=== PATIENT | female | born 1955 | race Caucasian/White ===

== ENCOUNTER 2017-02-19 14:12 | Observation (INO) | payer OTHER ==
[~2017-02-19] VITALS: Ht 167.6 cm; Wt 114.4 kg
[~2017-02-19 14:12] MED LIST: COREG12.5 MG PO
[2017-02-19 15:55] LABS: HEMOGLOBIN 14.9 gm/dl (12.3-15.3); RED BLOOD COUNT 4.66 M/UL (4.00-5.10); WHITE BLOOD COUNT 2.6 K/UL (4.5-11.0)
[2017-02-19 16:29] LABS: BUN/CREATININE RATIO 29 (0-10)
[2017-02-20] MEDS ORDERED: SANTYL OINT 3030 GM TOP (04:42)
[2017-02-20] MEDS ORDERED: ASPIR 8181 MG PO (04:43)
[2017-02-20] MEDS ORDERED: PLAVIX 75 MG TA75 MG PO (04:43)
[2017-02-20] MEDS ORDERED: JANUVIA100 MG PO (04:43)
[2017-02-20] MEDS ORDERED: NITROSTAT 0.40.4 MG SL (04:43)
[2017-02-20] MEDS ORDERED: METFORMIN HCL500 MG PO (04:44)
[2017-02-20] MEDS ORDERED: LOSARTAN POTASS25 MG PO (04:44)
[2017-02-20] MEDS ORDERED: NOVOLOG FL100 UNIT/1 SQ (04:45)
[2017-02-20] MEDS ORDERED: SIMVASTATIN40 MG PO (04:46)
[2017-02-20] MEDS ORDERED: VENTOLIN/PROVE0.5 ML INH (04:46)
[2017-02-20] MEDS ORDERED: LANTUS100 UNIT/1 SC (04:47)
[2017-02-20] MEDS ORDERED: TRAMADOL HCL50 MG PO (04:47)
[2017-02-20] MEDS ORDERED: PRIMIDONE50 MG PO (04:47)
[2017-02-20] MEDS ORDERED: LASIX 40 MG TAB40 MG PO (04:48)
[2017-02-20] MEDS ORDERED: NEURONTIN 300300 MG PO (04:50)
[2017-02-20 05:44] LABS: HEMOGLOBIN 13.7 gm/dl (12.3-15.3); RED BLOOD COUNT 4.34 M/UL (4.00-5.10); WHITE BLOOD COUNT 2.9 K/UL (4.5-11.0)
[2017-02-20] MEDS ORDERED: ZOCOR20 MG PO (13:27)
[2017-02-20] MEDS ORDERED: NORVASC 5 MG TAB5 MG PO (13:54)
[2017-02-20] MEDS ORDERED: ZITHROMAX TRI-500 MG PO (15:19)
== END 2017-02-20 19:00 | disposition home or self-care (01) ==
LOC: ER1 14:12 → ZEROF 21:10 → M/S 21:10
PROVIDERS: Physician Assistant; ADMIT Internal Medicine
DX: M25.511 Pain in right shoulder (principal); D72.819 Decreased white blood cell count, unspecified; D69.6 Thrombocytopenia, unspecified; I25.10 Atherosclerotic heart disease of native coronary artery without angina pectoris; I49.5 Sick sinus syndrome; E11.65 Type 2 diabetes mellitus with hyperglycemia; I10 Essential (primary) hypertension; E78.5 Hyperlipidemia, unspecified; E66.01 Morbid (severe) obesity due to excess calories; Z95.0 Presence of cardiac pacemaker; Z79.82 Long term (current) use of aspirin; Z79.02 Long term (current) use of antithrombotics/antiplatelets; Z79.891 Long term (current) use of opiate analgesic; Z79.4 Long term (current) use of insulin; Z79.899 Other long term (current) drug therapy; Z90.89 Acquired absence of other organs; Z90.49 Acquired absence of other specified parts of digestive tract; Z87.891 Personal history of nicotine dependence; Z91.14 Patient's other noncompliance with medication regimen
CPT/HCPCS: 36415; 71010; 73030; 80053; 80061; 82550; 82553; 82607; 82746; 82962; 83036; 83874; 83880; 84484; 85025; 85027; 93005; 99284; G0378

== ENCOUNTER → 2017-03-16 | Outpatient (CLI) | payer OTHER ==
[~2017-03-16] MED LIST changes: +ASPIR 8181 MG PO; +JANUVIA100 MG PO; +LANTUS100 UNIT/1 SC; +LASIX 40 MG TAB40 MG PO; +LOSARTAN POTASS25 MG PO; +METFORMIN HCL500 MG PO; +NEURONTIN 300300 MG PO; +NITROSTAT 0.40.4 MG SL; +NORVASC 5 MG TAB5 MG PO; +NOVOLOG FL100 UNIT/1 SQ; +PLAVIX 75 MG TA75 MG PO; +PRIMIDONE50 MG PO; +SANTYL OINT 3030 GM TOP; +SIMVASTATIN40 MG PO; +TRAMADOL HCL50 MG PO; +VENTOLIN/PROVE0.5 ML INH; +ZITHROMAX TRI-500 MG PO; +ZOCOR20 MG PO
== END ==
LOC: HEART 5 07:30
DX: I20.8 Other forms of angina pectoris (principal)
CPT/HCPCS: 78452; A9502; J2785

== ENCOUNTER → 2017-03-24 | Outpatient (CLI) | payer OTHER | LOC: HEART 5 09:28 | DX: I25.10 Atherosclerotic heart disease of native coronary artery without angina pectoris (principal); I20.9 Angina pectoris, unspecified; I51.7 Cardiomegaly; I07.1 Rheumatic tricuspid insufficiency; I27.2 Other secondary pulmonary hypertension | CPT/HCPCS: 93306 ==

== ENCOUNTER 2020-11-01 07:15 | Outpatient (CLI) | payer MEDICARE, OTHER ==
[~2020-11-01] VITALS: Ht 167.6 cm; Wt 114.4 kg
[~2020-11-01 07:15] MED LIST changes: +ALBUTEROL0.63 MG/3 INH; +ATORVASTATIN CA20 MG PO; +ATROVENT HFA12.9 GM INH; +AZITHROMYCIN500 MG PO; +BECLOMETHASONE INH; +BRILINTA 90 MG90 MG PO; +CARVEDILOL12.5 MG PO; +CATAPRES0.2 MG PO; +CEFUROXIME500 MG PO; +COREG 25MG TAB25 MG PO; -COREG12.5 MG PO; +COREG25 MG PO; +COZAAR 50MG TAB50 MG PO; +COZAAR50 MG PO; +DOXYCYCLINE HY100 M2 PO; +FUROSEMIDE40 MG PO; +IMDUR ER TAB 3030 MG PO; +IMDUR ER TAB 6060 MG PO; +IPRATROPIU0.2 MG/1 M INH; +KEFLEX500 MG PO; +LANTUS SOL100 UNIT/1 SQ; -LOSARTAN POTASS25 MG PO; +OMNICEF 300 MG300 MG PO; +PREDNISONE20 MG PO; +PROVENTIL HFA6.7 GM INH; +ROBITUSSIN DM UD5 ML PO; +ROCEPHIN 2 GM AD2 GM IV; +TESSALON PERLE100 MG PO; +ULTRAM50 MG PO; +VANCOMYCIN1 GM/250 M IV; -VENTOLIN/PROVE0.5 ML INH; +Voltaren gel 1 % TOP
[2020-11-01] MEDS ORDERED: NORVASC5 MG PO (08:22)
[2020-11-01] MEDS ORDERED: PLAVIX 75 MG TA75 MG PO (08:23)
[2020-11-01] MEDS ORDERED: SYMBICORT 16010.2 GM INH (13:07)
[2020-11-01 18:01] LABS: HEMOGLOBIN 12.2 gm/dl (12.3-15.3); RED BLOOD COUNT 4.09 M/UL (4.00-5.10); WHITE BLOOD COUNT 7.1 K/UL (4.5-11.0)
[2020-11-01 19:33] LABS: BUN/CREATININE RATIO 31 (0-10)
[2020-11-02 03:58] LABS: RED BLOOD COUNT 4.06 M/UL (4.00-5.10); WHITE BLOOD COUNT 8.1 K/UL (4.5-11.0)
[2020-11-02 04:47] LABS: BUN/CREATININE RATIO 28 (0-10)
[2020-11-02] MEDS ORDERED: ASPIRIN EC81 MG PO (13:50)
== END 2020-11-02 15:38 | disposition home or self-care (01) ==
LOC: CATH 07:15 → PROG CARE 11:16 → CATH 11-02 15:38
PROVIDERS: Internal Medicine Interventional Cardiology
DX: I25.118 Atherosclerotic heart disease of native coronary artery with other forms of angina pectoris (principal); I25.82 Chronic total occlusion of coronary artery; I10 Essential (primary) hypertension; E11.9 Type 2 diabetes mellitus without complications; I47.2 Ventricular tachycardia; E66.9 Obesity, unspecified; Z79.82 Long term (current) use of aspirin; Z79.4 Long term (current) use of insulin; Z79.899 Other long term (current) drug therapy; Z68.41 Body mass index [BMI] 40.0-44.9, adult; Z95.5 Presence of coronary angioplasty implant and graft; Z82.49 Family history of ischemic heart disease and other diseases of the circulatory system
CPT/HCPCS: 36415; 80048; 82550; 82553; 82962; 84484; 85025; 85347; 93005; 93571; 94760; 99152; 99153; C1769; C1874; C1887; C9600; J0153; J1644; J2250; J3010; J7030; Q9967

== ENCOUNTER 2020-11-25 12:53 | Inpatient (IN) | payer MEDICARE, OTHER ==
[~2020-11-25] VITALS: Ht 167.6 cm; Wt 117.9 kg
[~2020-11-25 12:53] MED LIST changes: +ASPIRIN EC81 MG PO; +NORVASC5 MG PO; +SYMBICORT 16010.2 GM INH
[2020-11-25 14:10] LABS: WHITE BLOOD COUNT 4.9 K/UL (4.5-11.0)
[2020-11-25 14:33] LABS: BUN/CREATININE RATIO 28 (0-10)
[2020-11-26 06:35] LABS: WHITE BLOOD COUNT 3.8 K/UL (4.5-11.0)
[2020-11-26 06:57] LABS: BUN/CREATININE RATIO 30 (0-10)
--- NOTE | 2020-11-26 18:26 | NUR ---
CALLED AND LEFT VOICEMAIL REGARDING PTS GLUCOSE OF 440, AWAITING RETURN CALL
[2020-11-27 05:39] LABS: HEMOGLOBIN 12.4 gm/dl (12.3-15.3); RED BLOOD COUNT 4.1 M/UL (4.00-5.10); WHITE BLOOD COUNT 6.6 K/UL (4.5-11.0)
[2020-11-27] MEDS ORDERED: IPRAT-ALBUT 0.5-3 ML INH (13:25)
[2020-11-29 06:32] LABS: HEMOGLOBIN 12.9 gm/dl (12.3-15.3); RED BLOOD COUNT 4.27 M/UL (4.00-5.10)
[2020-11-29 06:40] LABS: WHITE BLOOD COUNT 8.7 K/UL (4.5-11.0)
[2020-11-29] MEDS ORDERED: GABAPENTIN PO (12:13)
[2020-11-29] MEDS ORDERED: VITAMIN D 40400 UNIT PO (12:13)
[2020-11-29] MEDS ORDERED: VITAMIN C 500500 MG PO (12:13)
[2020-11-29] MEDS ORDERED: DECADRON6 MG PO (12:13)
[2020-11-29] MEDS ORDERED: NEURONTIN100 MG PO (12:14)
[2020-11-29] MEDS ORDERED: CEFUROXIME500 MG PO (12:18)
== END 2020-11-29 17:22 | disposition home health service (06) | DRG 177 ==
LOC: ER1 12:53 → CDU 16:04 → M/S 18:07
PROVIDERS: Emergency Medicine; ADMIT Family Medicine
PROC: XW13325 Transfusion of Convalescent Plasma (Nonautologous) into Peripheral Vein, Percutaneous Approach, New Technology Group 5 (ICD-10-PCS; principal; 2020-11-25)
PROC: XW033E5 Introduction of Remdesivir Anti-infective into Peripheral Vein, Percutaneous Approach, New Technology Group 5 (ICD-10-PCS; 2020-11-25)
DX: U07.1 COVID-19 (principal); J12.82 Pneumonia due to coronavirus disease 2019; J96.01 Acute respiratory failure with hypoxia; I50.33 Acute on chronic diastolic (congestive) heart failure; J96.21 Acute and chronic respiratory failure with hypoxia; E66.2 Morbid (severe) obesity with alveolar hypoventilation; Z68.41 Body mass index [BMI] 40.0-44.9, adult; I11.0 Hypertensive heart disease with heart failure; I25.10 Atherosclerotic heart disease of native coronary artery without angina pectoris; E11.40 Type 2 diabetes mellitus with diabetic neuropathy, unspecified; E11.65 Type 2 diabetes mellitus with hyperglycemia; Z79.899 Other long term (current) drug therapy; Z79.4 Long term (current) use of insulin; Z79.01 Long term (current) use of anticoagulants; Z79.82 Long term (current) use of aspirin; E78.5 Hyperlipidemia, unspecified; I49.5 Sick sinus syndrome; Z95.0 Presence of cardiac pacemaker; Z95.5 Presence of coronary angioplasty implant and graft; I25.2 Old myocardial infarction
CPT/HCPCS: 36415; 36600; 71045; 80048; 80053; 80202; 82550; 82553; 82728; 82803; 82962; 83615; 83735; 83874; 83880; 84484; 85025; 85027; 85379; 86140; 86900; 86901; 86927; 87040; 93005; 94640; 94664; 94760; 96374; 97110; 97162; 97166; 97535; 99285; J1100; J1650; J1940; J2543; J3370; J7030; J7070; U0002

== ENCOUNTER 2020-12-26 19:53 | Observation (INO) | payer MEDICARE, OTHER ==
[~2020-12-26] VITALS: Ht 167.6 cm; Wt 117.0 kg
[~2020-12-26 19:53] MED LIST changes: +DECADRON6 MG PO; +GABAPENTIN PO; +IPRAT-ALBUT 0.5-3 ML INH; +NEURONTIN100 MG PO; +VITAMIN C 500500 MG PO; +VITAMIN D 40400 UNIT PO
[2020-12-26 20:45] LABS: HEMOGLOBIN 11.1 gm/dl (12.3-15.3); RED BLOOD COUNT 3.69 M/UL (4.00-5.10); WHITE BLOOD COUNT 6.8 K/UL (4.5-11.0)
[2020-12-26] MEDS ORDERED: DELSYM30 MG/5 ML PO (22:46)
[2020-12-26] MEDS ORDERED: CEPHALEXIN500 MG PO (22:47)
[2020-12-28] MEDS ORDERED: FUROSEMIDE40 MG PO (12:10)
[2020-12-28] MEDS ORDERED: K-DUR TAB 20 M20 MEQ PO (12:15)
[2020-12-28] MEDS ORDERED: NESINA25 MG PO (12:22)
== END 2020-12-28 14:38 | disposition home or self-care (01) ==
LOC: ER1 19:53 → CDU 21:47 → MED SURG 4 21:47
PROVIDERS: Internal Medicine; Physician Assistant; ADMIT Internal Medicine
DX: I25.10 Atherosclerotic heart disease of native coronary artery without angina pectoris (principal); I11.0 Hypertensive heart disease with heart failure; I50.30 Unspecified diastolic (congestive) heart failure; I87.2 Venous insufficiency (chronic) (peripheral); J96.11 Chronic respiratory failure with hypoxia; U07.1 COVID-19; E11.9 Type 2 diabetes mellitus without complications; E78.5 Hyperlipidemia, unspecified; I49.5 Sick sinus syndrome; E66.9 Obesity, unspecified; E87.6 Hypokalemia; Z95.0 Presence of cardiac pacemaker; Z90.49 Acquired absence of other specified parts of digestive tract; Z82.3 Family history of stroke; Z87.891 Personal history of nicotine dependence; Z87.39 Personal history of other diseases of the musculoskeletal system and connective tissue; Z79.4 Long term (current) use of insulin; Z79.899 Other long term (current) drug therapy; Z79.82 Long term (current) use of aspirin
CPT/HCPCS: 36415; 80048; 80053; 82962; 83735; 85025; 86140; 90471; 96365; 96366; 96372; 96375; 96376; 99284; G0378; J1650; J1940; J3370; J7030; U0002

== ENCOUNTER → 2021-07-15 | Outpatient (CLI) | payer MEDICARE, OTHER ==
[~2021-07-15] MED LIST changes: +CEPHALEXIN500 MG PO; +DELSYM30 MG/5 ML PO; +K-DUR TAB 20 M20 MEQ PO; +NESINA25 MG PO
== END ==
LOC: HEART 5 09:27
DX: I50.32 Chronic diastolic (congestive) heart failure (principal); R06.02 Shortness of breath; R53.83 Other fatigue; R60.9 Edema, unspecified; I51.7 Cardiomegaly; I34.0 Nonrheumatic mitral (valve) insufficiency
CPT/HCPCS: 93306

== ENCOUNTER → 2021-09-20 | Outpatient (CLI) | payer MEDICARE, OTHER | LOC: KOH-I 10:35 | DX: M25.552 Pain in left hip (principal); M16.12 Unilateral primary osteoarthritis, left hip | CPT/HCPCS: 73502 ==

== ENCOUNTER 2022-02-21 13:39 | Inpatient (IN) | payer MEDICARE, OTHER ==
[~2022-02-21] VITALS: Ht 167.6 cm; Wt 104.3 kg
[~2022-02-21 13:39] MED LIST changes: +HYDROCODON-ACE1 EAC4 PO; +IBUPROFEN600 MG PO; -LANTUS SOL100 UNIT/1 SQ; +MACROBID 100 M100 M1 PO; -NOVOLOG FL100 UNIT/1 SQ
[2022-02-21 14:50] LABS: HEMOGLOBIN 12.9 gm/dl (12.3-15.3); RED BLOOD COUNT 4.2 M/UL (4.00-5.10); WHITE BLOOD COUNT 15.4 K/UL (4.5-11.0)
[2022-02-21 15:31] LABS: BUN/CREATININE RATIO 30 (0-10)
[2022-02-22] MEDS ORDERED: NOVOLOG FL100 UNIT/1 SQ (04:45)
[2022-02-22 05:31] LABS: HEMOGLOBIN 11.6 gm/dl (12.3-15.3)
[2022-02-22 05:32] LABS: RED BLOOD COUNT 3.76 M/UL (4.00-5.10); WHITE BLOOD COUNT 10.2 K/UL (4.5-11.0)
[2022-02-22 06:26] LABS: BUN/CREATININE RATIO 34 (0-10)
[2022-02-22] MEDS ORDERED: FARXIGA5 MG PO (10:24)
[2022-02-22] MEDS ORDERED: VOLTAREN EC 7575 MG PO (10:31)
[2022-02-22] MEDS ORDERED: ISOSORBIDE MONO60 MG PO (10:34)
[2022-02-22] MEDS ORDERED: POTASSIUM20 MEQ/15 PO (10:34)
[2022-02-22] MEDS ORDERED: COREG25 MG PO (10:35)
[2022-02-22] MEDS ORDERED: ASPIRIN EC81 MG PO (10:36)
[2022-02-22] MEDS ORDERED: AMLODIPINE BESYL5 MG PO (10:37)
[2022-02-22] MEDS ORDERED: LIPITOR40 MG PO (10:39)
[2022-02-22] MEDS ORDERED: LOSARTAN POTAS100 MG PO (10:43)
[2022-02-22] MEDS ORDERED: LANTUS SOL100 UNIT/1 SQ (19:13)
[2022-02-23 04:54] LABS: BUN/CREATININE RATIO 37 (0-10)
[2022-02-24 05:05] LABS: BUN/CREATININE RATIO 36 (0-10)
[2022-02-24] MEDS ORDERED: LEVOFLOXACIN500 MG PO (11:16)
[2022-02-24] MEDS ORDERED: OMNICEF 300 MG300 MG PO (11:16)
[2022-02-27 11:12] LABS: HEMOGLOBIN 10.2 gm/dl (12.3-15.3); RED BLOOD COUNT 3.37 M/UL (4.00-5.10); WHITE BLOOD COUNT 6.9 K/UL (4.5-11.0)
[2022-02-27 11:44] LABS: BUN/CREATININE RATIO 48 (0-10)
--- NOTE | 2022-02-27 15:06 | NUR ---
PT DRESSING CHANGED 02/27/22 @ 1500 SWOLLEN GREAT TOE NOTED BID DRESSING CHANGE W/ WET TO DRY IODINE
== END 2022-03-01 13:49 | disposition home health service (06) | DRG 264 ==
LOC: ER1 13:39 → CDU 18:27 → M/S 18:27
PROVIDERS: Family Medicine; Internal Medicine; ADMIT Internal Medicine
PROC: 8E0ZXY6 Isolation (ICD-10-PCS; principal; 2022-02-21)
PROC: 0JBQ0ZZ Excision of Right Foot Subcutaneous Tissue and Fascia, Open Approach (ICD-10-PCS; 2022-02-21)
DX: E11.52 Type 2 diabetes mellitus with diabetic peripheral angiopathy with gangrene (principal); U07.1 COVID-19; M86.8X7 Other osteomyelitis, ankle and foot; I13.0 Hypertensive heart and chronic kidney disease with heart failure and stage 1 through stage 4 chronic kidney disease, or unspecified chronic kidney disease; I50.32 Chronic diastolic (congestive) heart failure; J96.11 Chronic respiratory failure with hypoxia; E66.2 Morbid (severe) obesity with alveolar hypoventilation; N30.00 Acute cystitis without hematuria; L03.115 Cellulitis of right lower limb; E11.621 Type 2 diabetes mellitus with foot ulcer; E11.69 Type 2 diabetes mellitus with other specified complication; L97.519 Non-pressure chronic ulcer of other part of right foot with unspecified severity; I25.10 Atherosclerotic heart disease of native coronary artery without angina pectoris; E78.5 Hyperlipidemia, unspecified; B96.1 Klebsiella pneumoniae [K. pneumoniae] as the cause of diseases classified elsewhere; B95.61 Methicillin susceptible Staphylococcus aureus infection as the cause of diseases classified elsewhere; B95.1 Streptococcus, group B, as the cause of diseases classified elsewhere; E11.628 Type 2 diabetes mellitus with other skin complications; Z95.0 Presence of cardiac pacemaker; Z87.442 Personal history of urinary calculi; Z90.49 Acquired absence of other specified parts of digestive tract; Z98.890 Other specified postprocedural states; Z90.722 Acquired absence of ovaries, bilateral; Z82.3 Family history of stroke; Z87.891 Personal history of nicotine dependence; Z79.4 Long term (current) use of insulin; Z95.5 Presence of coronary angioplasty implant and graft; Z99.81 Dependence on supplemental oxygen
CPT/HCPCS: 36415; 70450; 72128; 72131; 72192; 73502; 73630; 73700; 78315; 80048; 80053; 80202; 81001; 82550; 82553; 82962; 83605; 84132; 84484; 85025; 85027; 85652; 86140; 86141; 87040; 87070; 87077; 87086; 87186; 87205; 93005; 93925; 94640; 94664; 94760; 96374; 97161; 97165; 97530; 97530-GP-CQ; 99285; A9503; J1650; J2185; J3370; J7070; U0002

== ENCOUNTER → 2022-05-05 | Outpatient (CLI) | payer MEDICARE, OTHER ==
[~2022-05-05] MED LIST changes: +AMLODIPINE BESYL5 MG PO; +FARXIGA5 MG PO; +ISOSORBIDE MONO60 MG PO; +LANTUS SOL100 UNIT/1 SQ; +LEVOFLOXACIN500 MG PO; +LIPITOR40 MG PO; +LOSARTAN POTAS100 MG PO; +NOVOLOG FL100 UNIT/1 SQ; +POTASSIUM20 MEQ/15 PO; +VOLTAREN EC 7575 MG PO
== END ==
LOC: KOH-I 09:00 → EDBD 09:15
DX: M86.9 Osteomyelitis, unspecified (principal); L03.031 Cellulitis of right toe
CPT/HCPCS: 73700

== ENCOUNTER → 2022-06-04 | Outpatient (CLI) | payer MEDICARE, OTHER ==
[~2022-06-04] MED LIST changes: +NEURONTIN300 MG PO
[2022-06-04 14:15] LABS: HEMOGLOBIN 11.1 gm/dl (12.3-15.3); RED BLOOD COUNT 3.7 M/UL (4.00-5.10); WHITE BLOOD COUNT 5.5 K/UL (4.5-11.0)
[2022-06-04 14:40] LABS: BUN/CREATININE RATIO 38 (0-10)
== END ==
LOC: OPSV2 12:30
PROVIDERS: Podiatrist Foot & Ankle Surgery
DX: Z01.818 Encounter for other preprocedural examination (principal); M86.671 Other chronic osteomyelitis, right ankle and foot
CPT/HCPCS: 36415; 71046; 80048; 83036; 85027; 85610; 85730

== ENCOUNTER → 2022-06-06 | Day surgery (SDC) | payer MEDICARE, OTHER | END | disposition home or self-care (01) | LOC: OR 06:54 | DX: M20.41 Other hammer toe(s) (acquired), right foot (principal); M20.5X1 Other deformities of toe(s) (acquired), right foot; M86.671 Other chronic osteomyelitis, right ankle and foot; L84 Corns and callosities; B35.1 Tinea unguium; I25.10 Atherosclerotic heart disease of native coronary artery without angina pectoris; I11.0 Hypertensive heart disease with heart failure; I50.9 Heart failure, unspecified; I48.91 Unspecified atrial fibrillation; J44.9 Chronic obstructive pulmonary disease, unspecified; E11.9 Type 2 diabetes mellitus without complications; K21.9 Gastro-esophageal reflux disease without esophagitis; F17.210 Nicotine dependence, cigarettes, uncomplicated; Z95.5 Presence of coronary angioplasty implant and graft; Z79.4 Long term (current) use of insulin; Z79.82 Long term (current) use of aspirin; Z79.899 Other long term (current) drug therapy | CPT/HCPCS: 73630; 82962; 87070; 87077; 87186; 87205; J0690; J1100; J2001; J2250; J2405; J2704; J2765; J2795; J3010; J3370; Q4133 ==